=== PATIENT | male | born 1945 | race Caucasian/White ===

== ENCOUNTER → 2017-09-16 | Outpatient (CLI) | payer MEDICARE ==
[~2017-09-16] MED LIST: ALBUAER3 INH; ALPR.5 PO; ASPI1TAB57 PO; ASPI81TA23 PO; ATOR40TA16 PO; PERC5TAB12 PO; PLAV75TA29 PO; WALKER GLIDE WH1 MI1
[2017-09-16 14:09] LABS: HEMATOCRIT 44.2 % (39.0-51.0); MEAN CELL VOLUME 101.7 FL (80.0-100.0); MEAN CORPUSCULAR HEMOGLOBIN 35.3 PG (27.0-34.0); MEAN CORPUSCULAR HGB CONC 34.7 % (32.0-36.0); PLATELET COUNT 220 TH/MM3 (150-450); RED BLOOD COUNT 4.35 MIL/MM3 (4.50-5.90); RED CELL DISTRIBUTION WIDTH 13.8 % (11.6-17.2); REVIEW FLAG FINAL; WHITE BLOOD COUNT 6.3 TH/MM3 (4.0-11.0)
[2017-09-16 14:17] LABS: INTERNATIONAL NORMALIZED RATIO 0.9 RATIO; PROTHROMBIN TIME - PATIENT 10.4 SEC (9.8-11.6)
[2017-09-16 14:39] LABS: BICARBONATE 27.1 MEQ/L (21.0-32.0); POTASSIUM 4.5 MEQ/L (3.5-5.1)
--- NOTE | 2017-09-16 14:51 | RADRPT ---
EXAM DATE/TIME: 09/16/2017 14:12 [facility] COMPARISON: No previous studies available for comparison. INDICATIONS : Evaluate for pneumonia, pneumothorax and communicable diseases. Pre-op for angiogram. MEDICAL HISTORY : Smoker. SURGICAL HISTORY : None. ENCOUNTER: Initial ACUITY: 1 day PAIN SCORE: 0/10 LOCATION: Bilateral chest FINDINGS: PA and lateral views of the chest demonstrate a normal-sized cardiac silhouette. There is no effusion , consolidation, or pneumothorax. There is a nodular density anteriorly on the lateral projection kirsty suring approximately 14 mm projecting over the retrosternal airspace. There is no correlate on the fr ontal projection. The bones and soft tissues demonstrate no acute abnormality. There are mild degener ative changes of the thoracic spine. CONCLUSION: 1. No acute cardiopulmonary abnormality is identified. 2. However, there is a 14 mm nodular density only visualized on the lateral view that is either in th e left upper lobe or right middle lobe. If no prior chest x-rays are available for comparison, recomm end chest CT for further evaluation. Vel Stout MD on September 16, 2017 at 14:47 Board Certified Radiologist. This report was verified electronically.
--- NOTE | 2017-09-17 17:55 | EKG ---
Date Performed: 09/16/2017 Time Performed: 13:36:16 PTAGE: 72 years EKG: Sinus rhythm WITH SINUS ARRHYTHMIA POSSIBLE RIGHT VENTRICULAR CONDUCTION DELAY BORDERLINE ECG NO PREVIOUS TRACING DOCTOR: Marcel Moreland Interpretating Date/Time 09/17/2017 17:54:02
== END ==
LOC: CPRE 13:10
PROVIDERS: ATTEND Surgery
DX: Z01.812 Encounter for preprocedural laboratory examination (principal); Z01.810 Encounter for preprocedural cardiovascular examination; Z01.811 Encounter for preprocedural respiratory examination; I73.9 Peripheral vascular disease, unspecified
CPT/HCPCS: 36415; 71020; 80048; 85027; 85610; 93005

== ENCOUNTER 2017-09-24 05:50 | Inpatient (IN) | payer MEDICARE ==
[~2017-09-24] VITALS: Ht 170.2 cm; Wt 76.5 kg
[2017-09-24] VITALS (9 sets, daily range): BP systolic 111–130; BP diastolic 58–61; PULSE 66–86; RESP 16–17; TEMP 98.1–98.4; O2SAT 84–97
[~2017-09-24 05:50] MED LIST changes: -ASPI81TA23 PO; -ATOR40TA16 PO; -PERC5TAB12 PO; -PLAV75TA29 PO; -WALKER GLIDE WH1 MI1
[2017-09-24] MEDS ORDERED: METOPROLOL TARTRATE 25 MG TAB PO PRN (06:15)
[2017-09-24] MEDS ORDERED: POVIDONE IODINE 5% (ANTISEPSIS KIT) 4 APPLICATIONS EACH NARE PRN (06:15)
[2017-09-24] MEDS ORDERED: CHLORHEXIDINE GLUCONATE 2 % 1 PACK (2 CLOTHS) TOPICAL PRN (06:15)
[2017-09-24] MEDS ORDERED: SODIUM CHLORID 0.9% 500 ML IV PRN (06:15)
[2017-09-24] MEDS ORDERED: INSULIN HUMAN REGULAR 1,000 UNITS/10 ML VIAL SQ PRN (06:15)
[2017-09-24] MEDS: LACTATED RINGER'S 1000 ML IV PRN (06:20)
[2017-09-24] MEDS ORDERED: ASPI81TA23 PO (06:25)
[2017-09-24] MEDS ORDERED: PROTAMINE SULFATE 50 MG/5 ML VIAL ONE (07:15)
[2017-09-24] MEDS ORDERED: THROMBIN (TOPICAL) 20,000 UNIT SPRAY KIT ONE (07:16)
[2017-09-24] MEDS ORDERED: HEPARIN-NS/PF INJ 500 ML ONE (07:16)
[2017-09-24] MEDS ORDERED: HEPARIN SODIUM - IV 10,000 UNITS/10 ML VIAL ONE (07:16)
[2017-09-24] MEDS ORDERED: VANCOMYCIN HCL 1000 MG VIAL ONE (07:20)
[2017-09-24] MEDS ORDERED: RESP: ALBUTEROL 2.5 MG/IPRATROPIUM 0.5 MG NEB (PRN) ONE (07:56)
[2017-09-24] MEDS ORDERED: MIDAZOLAM HCL 2 MG/2 ML VIAL ONE (08:06)
[2017-09-24] MEDS ORDERED: FAMOTIDINE 20 MG/2 ML VIAL ONE (08:07)
--- NOTE | 2017-09-24 08:39 | HHI.HP ---
History of Present Illness Chief Complaint: L>R LE claudication History of Present Illness 72 yo male with L > R LE claudication. No rest pain and no tissue loss. Past/Family/Social History Past Medical History HTN DM CAD Past Surgical History cataracts R ankle surgery appy Social History + tobacco history Family History NC Home Medications Reported Medications Aspirin DR (Aspirin EC) 81 Mg Tabdr, 81 MG PO DAILY, TAB 0 Refills 09/24/17 Albuterol 8.5 GM Inh (Proair Hfa 8.5 GM Inh) 90 Mcg/Act Aer, 1 PUFF INH BID, #1 INHALER 0 Refills 108 mcg/actuation 09/17/17 Alprazolam (Xanax) 0.5 Mg Tab, 0.5 MG PO Q6H Y for ANXIETY, TAB 0 Refills 09/16/17 Discontinued Reported Medications Aspirin DR (Aspirin 81) 81 Mg Tabdr, 81 MG PO DAILY, TAB 0 Refills 09/16/17 Coded Allergies: Penicillins (Verified Allergy, Unknown, 09/24/17) Review of Systems Constitutional: DENIES: Fever, Chills Respiratory: COMPLAINS OF: Shortness of breath Cardiovascular: COMPLAINS OF: Claudication, DENIES: Chest pain Physical Exam Vitals/I&O Date Time Temp Pulse Resp B/P (MAP) Pulse Ox O2 Delivery O2 Flow Rate FiO2 09/24/17 06:22 98.0 82 18 169/81 (110) 97 Neuro: awake, alert, VALDOVINOS HEENT: Anicteric sclera Neck: no JVD; trachea midline Heart: reg rate, no M Lungs: clear Bilaterally Abdomen: NT Vascular: No palp pedal pulses no palp R femoral pulse Caprini VTE Risk Assessment Caprini VTE Risk Assessment: Mod/High Risk (score >= 2) Caprini Risk Assessment Model Point Value = 1 Point Value = 2 Point Value = 3 Point Value = 5 Age 41-60 Minor surgery BMI > 25 kg/m2 Swollen legs Varicose veins or History of unexplained or recurrent spontaneous Oral contraceptives or hormone replacement Sepsis (< 1 month) Serious lung disease, including pneumonia (< 1 month) Abnormal pulmonary function Acute myocardial infarction Congestive heart failure (< 1 month) History of inflammatory bowel disease Medical patient at bed rest Age 61-74 Arthroscopic surgery Major open surgery (> 45 min) Laparoscopic surgery (> 45 min) Malignancy Confined to bed (> 72 hours) Immobilizing plaster cast Central venous access Age >= 75 History of VTE Family history of VTE Factor V Leiden Prothrombin [id number] Lupus anticoagulant Anticardiolipin antibodies Elevated serum homocysteine Heparin-induced thrombocytopenia Other congenital or acquired thrombophilia Stroke (< 1 month) Elective arthroplasty Hip, pelvis, or leg fracture Acute spinal cord injury (< 1 month) Prophylaxis Regimen Total Risk Factor Score Risk Level Prophylaxis Regimen 0-1 Low Early ambulation 2 Moderate Order ONE of the following: *Sequential Compression Device (SCD) *Heparin 5000 units SQ BID 3-4 Higher Order ONE of the following medications: *Heparin 5000 units SQ TID *Enoxaparin/Lovenox 40 mg SQ daily (WT < 150 kg, CrCl > 30 mL/min) *Enoxaparin/Lovenox 30 mg SQ daily (WT < 150 kg, CrCl > 10-29 mL/min) *Enoxaparin/Lovenox 30 mg SQ BID (WT < 150 kg, CrCl > 30 mL/min) AND/OR *Sequential Compression Device (SCD) 5 or more Highest Order ONE of the following medications: *Heparin 5000 units SQ TID (Preferred with Epidurals) *Enoxaparin/Lovenox 40 mg SQ daily (WT < 150 kg, CrCl > 30 mL/min) *Enoxaparin/Lovenox 30 mg SQ daily (WT < 150 kg, CrCl > 10-29 mL/min) *Enoxaparin/Lovenox 30 mg SQ BID (WT < 150 kg, CrCl > 30 mL/min) AND *Sequential Compression Device (SCD) Assessment and Plan Plan R groin reconstruction and L LE angiogram consents signed To OR Discharge Planning [phone] Frank Rodriguez MD Sep 24, 2017 08:39
[2017-09-24] MEDS ORDERED: MAGNESIUM HYDROXIDE SUSP 30 ML CUP PO PRN (09:15)
[2017-09-24] MEDS ORDERED: LACTULOSE SYRUP 20 GM/30 ML CUP PO PRN (09:15)
[2017-09-24] MEDS ORDERED: BISACODYL 10 MG SUPP RECTAL PRN (09:15)
[2017-09-24] MEDS ORDERED: DEXTROSE 50% IN WATER 50 ML VIAL(D50) IV PUSH PRN (09:15)
[2017-09-24] MEDS ORDERED: MORPHINE SULFATE 4 MG/ML INJ IV PUSH PRN (09:15)
[2017-09-24] MEDS ORDERED: SENNOSIDES 8.6 MG TAB PO PRN (09:15)
[2017-09-24] MEDS ORDERED: GLUCAGON 1 MG/ML VIAL OTHER PRN (09:15)
[2017-09-24] MEDS ORDERED: DEXMEDETOMIDINE HCL 200 MCG/2 ML VIAL ONE (10:38)
[2017-09-24] MEDS ORDERED: ACETAMINOPHEN 1000 MG/100 ML 100 ML IV ONE (10:39)
[2017-09-24] MEDS ORDERED: D5-1/2 NS + KCL 20 MEQ INJ 1,000 ML IV SCH (11:00)
[2017-09-24] MEDS: BUPIVACAINE HCL PF 0.5% 30 ML VIAL ONE (11:19)
--- NOTE | 2017-09-24 11:47 | HHI.PR ---
Immediate Post Op Note Procedure Date: Sep 24, 2017 Pre Op Diagnosis: PAD, B LE extremities Post Op Diagnosis: PAD, B LE extremities Surgeon: Frank Rodriguez Form Setter Steel Pan Forms(s): none Procedure: 1. R iliofemoral bypass 2. R profunda endarterectomy 3. R CANINE SERVICE INSTRUCTOR TRAINER-SFA bypass 4. R EIA stent 5. Aortogram Findings: extensive groin disease and inflow disease Additional Information: good Doppler signals R PT Complications: none Specimen(s) removed: none for pathology Estimated blood loss: 150mL Anesthesia: General Drains: None Fluids: 2100mL IVF Urinary Output (mLs): 355 Patient to: PACU Patient Condition: Good Implant/Devices: SEE IMPLANT LOG (if applicable) Date/Time of Procedure: SEE SURGICAL CARE RECORD Frank Rodriguez MD Sep 24, 2017 11:47
[2017-09-24] MEDS ORDERED: NORMOSOL R INJ 2,000 ML IV ONE (12:00)
[2017-09-24] MEDS ORDERED: LIDOCAINE HCL 1% PF 5 ML SYRINGE OTHER ONE (12:00)
[2017-09-24] MEDS ORDERED: PHENYLEPH/NS 1000 MCG/10 ML SYR IV ONE (12:00)
[2017-09-24] MEDS ORDERED: GLYCOPYRROLATE 1 MG/5 ML SYRINGE IV PUSH ONE (12:00)
[2017-09-24] MEDS ORDERED: ePHEDrine/NS 25 MG/5 ML SYR IV ONE (12:00)
[2017-09-24] MEDS ORDERED: ROCURONIUM INJ 50 MG/5 ML SYRINGE IV PUSH ONE (12:00)
[2017-09-24] MEDS ORDERED: DEXAMETHASONE SOD PHOS 4 MG/ML VIAL IV ONE (12:00)
[2017-09-24] MEDS ORDERED: PROPOFOL 200 MG/20 ML AMP IV ONE (12:00)
[2017-09-24] MEDS ORDERED: NEOSTIGMINE 3 MG/3 ML SYR IV ONE (12:00)
[2017-09-24] MEDS ORDERED: SODIUM CHLOR 0.9% 250 ML INJ 250 ML IV ONE (12:00)
[2017-09-24] MEDS ORDERED: hydrALAZINE HCL 20 MG/ML VIAL IV ONE (12:00)
[2017-09-24] MEDS ORDERED: ONDANSETRON HCL 4 MG/2 ML VIAL IV PUSH ONE (12:00)
[2017-09-24] MEDS ORDERED: MORPHINE SULFATE 4 MG/ML INJ IV ONE (12:00)
[2017-09-24] MEDS ORDERED: SODIUM CHLORID 0.9% 500 ML INJ 500 ML IV ONE (12:00)
[2017-09-24] MEDS ORDERED: DO NOT ADM ANY ANTICOAGULANT DRUGS PRN (12:11)
[2017-09-24] MEDS ORDERED: *morphine SULFATE 8 MG/ML PERIprocedure ONLY ONE (12:28)
[2017-09-24] MEDS ORDERED: IOHEXOL IV ONE (13:59)
[2017-09-24] MEDS ORDERED: ALBUTEROL SULFATE 90 MCG/ACT HFA 8 GM INHALER INH PRN (14:00)
[2017-09-24] MEDS: INSULIN ASPART SUPPLEMENTAL SCALE SQ SCH ×2 (17:00→20:58)
[2017-09-24] MEDS: FAMOTIDINE 20 MG TAB PO SCH (20:52)
[2017-09-24] MEDS: DOCUSATE SODIUM 50 MG/SENNA 8.6 MG TAB PO SCH (20:52)
[2017-09-24] MEDS: HYDROmorphone HCL 2 MG TAB PO PRN (20:53)
[2017-09-24] MEDS: ATORVASTATIN 40 MG TAB PO SCH (20:53)
--- NOTE | 2017-09-24 22:54 | MP ---
cc: MINE RODRIGUEZ DATE OF SURGERY 09/24/17 PREOPERATIVE DIAGNOSIS Bilateral lower extremity claudication, peripheral arterial occlusive disease. POSTOPERATIVE DIAGNOSIS Bilateral lower extremity claudication, peripheral arterial occlusive disease. PROCEDURE 1. Right iliofemoral bypass with 8 mm Dacron. 2. Right profunda endarterectomy. 3. Right common femoral to superficial femoral artery bypass with 8 mm Dacron. 4. Aortogram. 5. Right external iliac artery stent with 8 x 80 Zilver. MEDICATIONS Mine Rodriguez MD. ANESTHESIA General. INDICATIONS Mr. Gonzalez is a 72-year-old gentleman who has bilateral lower extremity claudication. Preoperative CT scan suggested he had significant right groin disease and he is taken to the operating room for combined endovascular and revascularization. Intraoperatively it was found that he had significant left inflow disease as well and so only the right side was repaired today. DESCRIPTION OF PROCEDURE Informed consent was obtained from the patient. He was taken to the operating room and placed supine on the operating table. An appropriate time-out was taken to ensure the patient identity, operative site and planned procedure. The administration of 1 gram of vancomycin was initiated prior to skin incision, will be discontinued after single preoperative dose. Vancomycin was chosen because of the patient's penicillin allergy. Everyone in the room agreed to a time-out and we proceeded. He was prepped from his nipples to his toes. A vertical incision made in the patient's right groin, carried down to subcutaneous tissue with electrocautery. The external iliac artery was dissected free and encircled with a vessel loop. The circumflex vessels were encircled with 2-0 silk for vascular control. The common femoral artery, proximal profunda and SFA was dissected free. The SFA was dissected about 5 or 6 cm down from its origin to a point that it was less calcified. At this point the patient systemically heparinized and throughout the remainder of the case the ACT was kept greater than 250. Vascular control of the two main profunda branches as well as the external iliac artery were obtained with profunda clamps. The SFA was controlled with the profunda clamp as well. The SFA was transected and the common femoral artery was transected at the level of the two main profunda branches. There was severe plaque in the profunda and so this was successfully endarterectomized with a [place] endarterectomy knife. A reasonable endpoint was obtained. The common femoral artery was resected and the external artery iliac artery was spatulated, 8 mm Dacron was sewn end-to-end to the external iliac artery with running 5-0 Prolene suture, at the completion it was flushed and the clamp was released and noted to be hemostatic with a couple of repair sutures. A Derick soft jaw clamp was placed on the Dacron and the Dacron was spatulated with a generous osorio to the orifice of the endarterectomized profunda femoris arteries. This was anastomosed with a 5-0 Prolene suture. Profunda clamps then placed on the graft after confirming hemostasis and a longitudinal graftotomy was made with an 11 blade, extended with Calhoun scissors. 8 mm Dacron was sewn graft to graft with running 5-0 Prolene suture. Then all the clamps were released except for the clamp on the second graft which was noted to have a nice pulse in it. The second graft which was a jump graft on the SFA was cut to an appropriate length, spatulated. The SFA was also spatulated, it was sewn end-to-end with a running 5-0 Prolene suture. A 21 gauge micropuncture needle was used to access the jump graft. This exchanged using Seldinger technique for micropuncture sheath which a 0.035 Glidewire was introduced, micropuncture was changed for a 5-Fijian sheath and a VCF catheter was placed over the wire in through the sheath and the aortogram was obtained. The aortogram showed patent aorta but significant calcific disease in both the common iliac arteries which is not felt to be hemodynamically significant but both external iliac arteries which was hemodynamically significant. The left external iliac artery and common femoral artery were extremely diseased and based on this decision was made to fix the right side only today. A 0.035 Storq wire was introduced through the VCF catheter and the VCF catheter and 5-Fijian sheath were removed and a 6-Fijian sheath introduced and an 8 x 80 Zilver was placed in the proximal external iliac artery and postdilated with a 7-mm balloon. The completion angiogram showed excellent result under recoil extravasation. The wire, catheter and sheath were removed. The graftotomy was closed with 5-0 Prolene suture. There was a nice Doppler signal in the foot and the wound was irrigated, made hemostatic and closed with 2-0 Polysorb, 3-0 Polysorb and 4-0 Monocryl. The sponge, needle counts were correct at the end of the case. I was present, scrubbed and performed the entire procedure. MD SIMIN Burroughs/ASHU /5:41 PM /10:31 PM KAYLAN
[2017-09-24] MEDS: ALPRAZolam 0.5 MG TAB PO PRN (23:08)
[2017-09-25] VITALS (26 sets, daily range): BP systolic 107–161; BP diastolic 56–72; PULSE 62–112; RESP 16–20; TEMP 98.2–99.1; O2SAT 76–97
[2017-09-25 05:50] LABS: HEMATOCRIT 38.7 % (39.0-51.0); MEAN CORPUSCULAR HEMOGLOBIN 34.5 PG (27.0-34.0); MEAN CORPUSCULAR HGB CONC 33.8 % (32.0-36.0); PLATELET COUNT 152 TH/MM3 (150-450); RED BLOOD COUNT 3.79 MIL/MM3 (4.50-5.90); RED CELL DISTRIBUTION WIDTH 13.6 % (11.6-17.2); REVIEW FLAG FINAL
[2017-09-25 06:13] LABS: ANION GAP 6 MEQ/L (5-15); BICARBONATE 27.2 MEQ/L (21.0-32.0); BLOOD UREA NITROGEN 10 MG/DL (7-18); CHLORIDE 105 MEQ/L (98-107); GLOMERULAR FILTRATION RATE 92 ML/MIN (>89); POTASSIUM 3.7 MEQ/L (3.5-5.1); SODIUM (NA) 138 MEQ/L (136-145)
--- NOTE | 2017-09-25 06:42 | PD.VS.PN ---
Subjective POD #: 1 Procedure(s): R groin reconstruction and iliac stent Subjective/Hospital Course didn't sleep well but because of noises and not pain R foot already feels better Objective Vitals/I&O Date Time Temp Pulse Resp B/P (MAP) Pulse Ox O2 Delivery O2 Flow Rate FiO2 09/25/17 06:10 80 09/25/17 05:14 88 09/25/17 03:10 73 09/25/17 03:06 98.2 76 17 107/56 (73) 76 09/25/17 02:02 62 09/25/17 01:11 75 09/24/17 23:00 66 09/24/17 22:55 98.3 85 16 118/58 (78) 94 09/24/17 22:54 17 09/24/17 21:00 76 09/24/17 19:00 98.1 77 17 111/61 (78) 94 09/24/17 19:00 70 09/24/17 18:00 80 09/24/17 17:00 80 09/24/17 16:00 84 09/24/17 15:30 16 09/24/17 15:00 86 09/24/17 14:00 98.4 84 16 130/60 (83) 97 09/24/17 13:30 97.6 78 12 121/60 (80) 96 Nasal Cannula 3 09/24/17 13:15 81 15 118/60 (79) 96 Nasal Cannula 3 09/24/17 13:00 83 15 103/55 (71) 93 Nasal Cannula 3 09/24/17 12:45 84 15 99/55 (70) 93 Nasal Cannula 3 09/24/17 12:30 85 17 118/58 (78) 93 Nasal Cannula 3 09/24/17 12:15 84 24 128/55 (79) 95 Nasal Cannula 3 09/24/17 12:12 98.2 84 15 131/62 (85) 94 Nasal Cannula 3 09/25/17 09/25/17 09/25/17 07:00 15:00 23:00 Intake Total 654 ml Output Total 950 ml Balance -296 ml Exam: R groin soft, not swollen; Provena in place palpable R PT Laboratory Laboratory Tests Test 09/25/17 05:20 White Blood Count 10.0 Red Blood Count 3.79 Hemoglobin 13.1 Hematocrit 38.7 Mean Corpuscular Volume 102.0 Mean Corpuscular Hemoglobin 34.5 Mean Corpuscular Hemoglobin Concent 33.8 Red Cell Distribution Width 13.6 Platelet Count 152 Mean Platelet Volume 7.4 Blood Urea Nitrogen 10 Creatinine 0.82 Random Glucose 118 Calcium Level 7.8 Sodium Level 138 Potassium Level 3.7 Chloride Level 105 Carbon Dioxide Level 27.2 Anion Gap 6 Estimat Glomerular Filtration Rate 92 Assessment and Plan Plan POD#1 s/p R groin reconstruction and iliac stent; palpable pedal pulse 1. HL IVF, normalize including ASA/plavix 2. OOB and ambulate ad lyle 3. Consulted thoracic surgery re: incidental lung mass Discharge Planning tomorrow (POD#2) Once recovers from R groin, will schedule LEFT leg Frank Rodriguez MD Sep 25, 2017 06:42
[2017-09-25] MEDS: INSULIN ASPART SUPPLEMENTAL SCALE SQ SCH ×4 (08:00→21:00)
[2017-09-25] MEDS ORDERED: INFLUENZA VIRUS VACCINE (QUADRIVALENT) 0.5 ML SYR IM ONE (09:00)
[2017-09-25] MEDS: CLOPIDOGREL 75 MG TAB PO SCH (09:25)
[2017-09-25] MEDS: DOCUSATE SODIUM 50 MG/SENNA 8.6 MG TAB PO SCH ×2 (09:25→20:05)
[2017-09-25] MEDS: ASPIRIN 81 MG CHEW TAB PO SCH (09:25)
[2017-09-25] MEDS: FAMOTIDINE 20 MG TAB PO SCH ×2 (09:26→20:05)
[2017-09-25] MEDS: ENOXAPARIN SODIUM 30 MG/0.3 ML SYRINGE SQ SCH (11:13)
[2017-09-25 15:47] LABS: HEMOGLOBIN A1b 1.6 %; HEMOGLOBIN Ao 84.4 %; HEMOGLOBIN LA1C 2.4 %; HEMOGLOBIN P3 3.9 %
[2017-09-25] MEDS ORDERED: FLUMAZENIL 0.5 MG/5 ML VIAL IV PUSH PRN (17:45)
[2017-09-25] MEDS ORDERED: LORazepam 2 MG/ML VIAL IV PUSH PRN ×4 (17:45)
[2017-09-25] MEDS ORDERED: LORazepam 1 MG TAB PO PRN (17:45)
[2017-09-25] MEDS ORDERED: LORazepam 2 MG TAB PO PRN (17:45)
[2017-09-25] MEDS ORDERED: LACTATED RINGER'S 1000 ML INJ 1,000 ML IV SCH (18:00)
[2017-09-25] MEDS ORDERED: SODIUM CHLOR 0.9% 1000 ML INJ 1,000 ML IV ONE (19:30)
[2017-09-25] MEDS: ATORVASTATIN 40 MG TAB PO SCH (20:05)
[2017-09-25 20:59] LABS: BICARBONATE 26.9 MEQ/L (21.0-32.0); POTASSIUM 3.6 MEQ/L (3.5-5.1)
--- NOTE | 2017-09-25 23:05 | RADRPT ---
EXAM DATE/TIME: 09/25/2017 21:59 [facility] COMPARISON: CHEST PA & LAT, September 16, 2017, 14:12. INDICATIONS : Evaluate for lung nodule. Abnormal Chest X-ray. RADIATION DOSE: 9.38 CTDIvol (mGy) MEDICAL HISTORY : Cardiovascular disease. Hypertension. Chronic obstructive pulmonary disease. SURGICAL HISTORY : Appendectomy. ENCOUNTER: Initial ACUITY: 1 day PAIN SCALE: 0/10 LOCATION: chest TECHNIQUE: Volumetric scanning of the chest was performed. Using automated exposure control and adjustment of t he mA and/or kV according to patient size, radiation dose was kept as low as reasonably achievable to obtain optimal diagnostic quality images. DICOM format image data is available electronically for r eview and comparison. Follow-up recommendations for detected pulmonary nodules are based at a minimum on nodule size and pa tient risk factors according to Fleischner Society Guidelines. FINDINGS: LUNGS: Biapical emphysematous changes. There is a mild perifissural probable atelectatic changes or scarring in the right upper lobe no confluent infiltrate or suspicious mass lesion. PLEURAE: Focal areas of pleural calcification in the left upper hemithorax may represent prior asbestos exposu re. MEDIASTINUM: The heart and great vessels demonstrate no acute abnormality. There is no mediastinal or hilar lymph adenopathy. Atherosclerotic calcification of the coronary arteries AXILLAE: Within normal limits. No lymphadenopathy. MUSCULOSKELETAL: Within normal limits for patient age. MISCELLANEOUS: The visualized upper abdominal organs demonstrate no acute abnormality. There are benign-appearing pr obable cyst in the left and right hepatic lobe, the largest on the left measuring 2.5 cm in diameter. Density levels in the gallbladder lumen may represent sludge or small stones. CONCLUSION: 1. Biapical emphysematous changes with probable perifissural atelectasis or scarring in the right upp er lobe. 2. No confluent infiltrate or suspicious mass lesion. 3. Pleural-based calcifications in the left hemithorax may be indicative of prior asbestos exposure. 4. Gallbladder sludge versus small stones. 5. Benign-appearing hepatic cysts Dio Wyatt MD on September 25, 2017 at 22:56 Board Certified Radiologist. This report was verified electronically.
[2017-09-26] VITALS (26 sets, daily range): BP systolic 124–162; BP diastolic 58–72; PULSE 80–103; RESP 16–18; TEMP 98–100.5; O2SAT 93–97
[2017-09-26] MEDS: ALPRAZolam 0.5 MG TAB PO PRN (00:27)
[2017-09-26 04:48] LABS: BICARBONATE 23.6 MEQ/L (21.0-32.0); POTASSIUM 3.6 MEQ/L (3.5-5.1)
[2017-09-26] MEDS: INSULIN ASPART SUPPLEMENTAL SCALE SQ SCH ×3 (07:35→11:44)
--- NOTE | 2017-09-26 08:00 | MB ---
cc: MARCIO ADAMS MD DATE OF CONSULTATION 09/25/2017 DATE OF 1945, 72-year-old male HISTORY OF THE PRESENT ILLNESS A 72-year-old patient of in [place], Dr. Frank Rodriguez who has a history of peripheral arterial disease with claudication underwent a right iliofemoral bypass with 8-mm , right profunda endarterectomy, right common femoral to superficial femoral artery bypass, right external iliac artery stent on 09/24/2017. Incidentally a preop chest x-ray showed a 14 mm nodular density on the lateral view. The patient states that he has a had a history of having a small nodule on the right lung that was followed by [facility] about 3 years ago and he last had a CT scan of the chest at [facility] in [place] and we were consulted in regards to workup regarding this nodular density. PAST MEDICAL HISTORY The patient's past medical history includes: 1. Peripheral arterial disease. 2. Chronic obstructive pulmonary disease. 3. Claudication of the lower extremities . PAST SURGICAL HISTORY As above includin. Right cataract surgery. 2. Right ankle surgery. 3. Appendectomy. 4. He is also legally blind in the left eye from . ALLERGIES THE PATIENT HAS ALLERGY TO PENICILLIN. MEDICATIONS Home medications include: 1. Aspirin. 2. Ventolin inhaler. 3. Xanax. FAMILY HISTORY Mother at 93 from old age. Father at 86 after resulting after a fall. SOCIAL HISTORY The patient recently remarried. Two children. Has been smoking for 50 years one pack per day. Drinks approximately six beers per day. 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 He worked there for about 5-6 years. Has two dogs at home. No recent travel. REVIEW OF SYSTEMS GENERAL: No night sweats, fever, heat and cold intolerance. SKIN: No psoriasis, itching or hives. HEENT: No blurred vision, hearing loss. RESPIRATORY: Occasional shortness of breath. CARDIOVASCULAR: No chest pain. No paroxysmal nocturnal dyspnea. He has chronic lower extremity pain and claudication when walking and cramping. GASTROINTESTINAL: No known diarrhea, vomiting. GENITOURINARY: No burning, frequency, urgency. CENTRAL NERVOUS SYSTEM: No history of TIA, CVA, seizure disorder. ENDOCRINE: No diabetes or hypothyroidism. PHYSICAL EXAMINATION VITAL SIGNS: On exam blood pressure 110/60, heart rate of 84, afebrile. GENERAL: Patient is awake, alert in no acute distress. HEENT: Head is normocephalic, atraumatic. Pupils equal and reactive. Oral mucosa pink, moist. NECK: Supple. No JVD. CARDIOVASCULAR: Heart sounds S1-S2 regular rate and rhythm. No audible rubs, murmurs, gallops. LUNGS: Diminished in the bases, otherwise clear to auscultation. No wheezes, rales or rhonchi. EXTREMITIES: Reveal palpable right pedal pulse. The right groin has a Prevena dressing in place. Left leg, left foot is warm with palpable pulse. IMPRESSION This is a patient status post peripheral arterial surgery as above with incidental finding of a 14 mm nodular density in the lung. He has had a history apparently of a nodule in the past. CT chest is pending. We will also try to obtain the prior records from [facility] in [place]. In the meantime the patient recommend again lifestyle modification with aspirin, statin, probable Plavix and further workup is pending as per the CT chest. In the meantime, recommend smoking cessation and pulmonary function testings which are pending. Dictated by VINCENZO Meehan Marcio BUTLER /2:21 PM /7:52 AM
[2017-09-26] MEDS: CLOPIDOGREL 75 MG TAB PO SCH (08:32)
[2017-09-26] MEDS: DOCUSATE SODIUM 50 MG/SENNA 8.6 MG TAB PO SCH ×2 (08:32→20:53)
[2017-09-26] MEDS: ASPIRIN 81 MG CHEW TAB PO SCH (08:33)
[2017-09-26] MEDS: FAMOTIDINE 20 MG TAB PO SCH ×2 (08:33→20:53)
--- NOTE | 2017-09-26 09:37 | PD.VS.PN ---
Subjective POD #: 2 Procedure(s): R groin reconstruction and iliac stent Subjective/Hospital Course Pt alert and oriented this am Pt reported improved RLE pain since surgery Pt voiding w/o difficulty Right groin w/ Provena wound vac in place Objective Vitals/I&O Date Time Temp Pulse Resp B/P (MAP) Pulse Ox O2 Delivery O2 Flow Rate FiO2 09/26/17 09:00 88 09/26/17 08:00 100.1 88 18 162/72 (102) 93 09/26/17 08:00 86 09/26/17 07:00 81 09/26/17 06:00 80 09/26/17 05:00 84 09/26/17 04:00 88 09/26/17 03:00 91 09/26/17 03:00 99.0 93 16 159/67 (97) 93 09/26/17 02:00 90 09/26/17 01:00 84 09/26/17 00:00 100 09/25/17 23:00 99.1 93 16 161/71 (101) 95 09/25/17 23:00 91 09/25/17 22:00 90 09/25/17 21:00 88 09/25/17 20:00 92 09/25/17 19:15 99.0 95 20 158/72 (100) 94 09/25/17 19:00 90 09/25/17 18:00 104 09/25/17 17:00 104 09/25/17 16:00 112 09/25/17 15:00 99 09/25/17 15:00 98.3 106 20 124/59 (80) 97 09/25/17 14:00 80 09/25/17 13:00 72 09/25/17 12:00 92 09/25/17 11:30 84 16 107/58 (74) 95 09/25/17 11:30 16 09/25/17 11:00 80 09/25/17 10:30 16 09/25/17 10:00 88 09/26/17 09/26/17 09/26/17 07:00 15:00 23:00 Intake Total 1162 ml Output Total 825 ml Balance 337 ml Exam: GENERAL: A&O, GCS 15 SKIN: Warm and dry/ Provena wound vac to right groin w/o swelling or hematoma/ LE warm with motor intact MUSCULOSKELETAL: No cyanosis, or edema. Biphasic R DP/PT Laboratory Laboratory Tests Test 09/25/17 18:55 09/26/17 04:15 Blood Urea Nitrogen 14 10 Creatinine 0.91 0.72 Random Glucose 93 93 Calcium Level 7.8 7.9 Sodium Level 132 138 Potassium Level 3.6 3.6 Chloride Level 99 105 Carbon Dioxide Level 26.9 23.6 Anion Gap 6 9 Estimat Glomerular Filtration Rate 82 107 Assessment and Plan Assessment: (1) PAD (peripheral artery disease) Plan POD#2 s/p R groin reconstruction and iliac stent; palpable pedal pulse Pt doing well Pt reported improved RLE pain and discomfort since surgical intervention Pt denied rest pain /claudication Reviewed lab results w/ pt Plan Continue OOB and ambulate with PT D/c MIVF I/S q4h Pain control D/C planning -pending CT/PFT results for incidental lung mass finding (thoracic surgery input appreciated) Courtney LOYA [facility] [phone] Discharge Planning 1-2 days Courtney Donald Sep 26, 2017 09:37
[2017-09-26] MEDS: ENOXAPARIN SODIUM 30 MG/0.3 ML SYRINGE SQ SCH (11:01)
--- NOTE | 2017-09-26 17:18 | PD.CAR.PN ---
CVT Progress Note Subjective/Hospital Course: Discussed findings with patient. CT chest does not show a definitive mass in the right lung, although, there is some ground-glass opacity versus atelectasis in the superior segment of the right lower lobe. Would recommend outpatient PET scan in case this represents a slo-growing bronchoalveolar carcinoma. His PFTs would preclude any formal anatomic pulmonary resection. Thanks for allowing me to participate in the care of this very pleasant gentleman. Objective: Vital Signs Date Time Temp Pulse Resp B/P (MAP) Pulse Ox O2 Delivery O2 Flow Rate FiO2 09/26/17 17:00 85 09/26/17 16:39 18 09/26/17 16:00 84 09/26/17 15:55 99.9 100 18 150/65 (93) 97 09/26/17 15:00 90 09/26/17 14:00 84 09/26/17 13:00 85 09/26/17 12:00 98 09/26/17 11:16 99.0 100 18 134/62 (86) 93 09/26/17 11:00 103 09/26/17 10:00 84 09/26/17 09:00 88 09/26/17 08:00 100.1 88 18 162/72 (102) 93 09/26/17 08:00 86 09/26/17 07:00 81 09/26/17 06:00 80 09/26/17 05:00 84 09/26/17 04:00 88 09/26/17 03:00 91 09/26/17 03:00 99.0 93 16 159/67 (97) 93 09/26/17 02:00 90 09/26/17 01:00 84 09/26/17 00:00 100 09/25/17 23:00 99.1 93 16 161/71 (101) 95 09/25/17 23:00 91 09/25/17 22:00 90 09/25/17 21:00 88 09/25/17 20:00 92 09/25/17 19:15 99.0 95 20 158/72 (100) 94 09/25/17 19:00 90 09/25/17 18:00 104 Result Diagram: 09/25/17 0520 09/26/17 0415 Agustin Rutherford MD Sep 26, 2017 17:18
[2017-09-26] MEDS: ATORVASTATIN 40 MG TAB PO SCH (20:53)
[2017-09-26] MEDS: HYDROmorphone HCL 2 MG TAB PO PRN (23:47)
[2017-09-27] VITALS (15 sets, daily range): BP systolic 119–130; BP diastolic 58–61; PULSE 64–85; RESP 18; TEMP 99–99.8; O2SAT 95
[2017-09-27] MEDS: FAMOTIDINE 20 MG TAB PO SCH (09:00)
[2017-09-27] MEDS: DOCUSATE SODIUM 50 MG/SENNA 8.6 MG TAB PO SCH (09:00)
[2017-09-27] MEDS ORDERED: ENOXAPARIN SODIUM 40 MG/0.4 ML SYRINGE SQ SCH (09:00)
[2017-09-27] MEDS: ASPIRIN 81 MG CHEW TAB PO SCH (09:00)
[2017-09-27] MEDS: CLOPIDOGREL 75 MG TAB PO SCH (09:01)
--- NOTE | 2017-09-27 09:45 | PD.VS.PN ---
Subjective POD #: 3 Procedure(s): R groin reconstruction and iliac stent Subjective/Hospital Course Pt alert and oriented this am Pain controlled Pt w/o complaints Pt reported improved RLE pain since surgery Removed Provena wound vac from Right groin R groin incision intact well approximated Objective Vitals/I&O Date Time Temp Pulse Resp B/P (MAP) Pulse Ox O2 Delivery O2 Flow Rate FiO2 09/27/17 08:00 77 09/27/17 07:53 99.8 76 18 119/61 (80) 95 09/27/17 07:00 67 09/27/17 06:00 85 09/27/17 05:00 80 09/27/17 04:00 66 09/27/17 03:00 72 09/27/17 03:00 99.8 76 18 130/60 (83) 95 09/27/17 02:00 72 09/27/17 01:00 80 09/27/17 00:00 78 09/26/17 23:00 100.5 83 18 124/60 (81) 96 09/26/17 23:00 91 09/26/17 22:00 88 09/26/17 21:00 88 09/26/17 20:00 84 09/26/17 20:00 98.0 86 18 124/58 (80) 95 09/26/17 19:00 91 09/26/17 18:00 84 09/26/17 17:00 85 09/26/17 16:39 18 09/26/17 16:00 84 09/26/17 15:55 99.9 100 18 150/65 (93) 97 09/26/17 15:00 90 09/26/17 14:00 84 09/26/17 13:00 85 09/26/17 12:00 98 09/26/17 11:16 99.0 100 18 134/62 (86) 93 09/26/17 11:00 103 09/26/17 10:00 84 09/27/17 09/27/17 09/27/17 07:00 15:00 23:00 Intake Total 240 ml Output Total 200 ml Balance 40 ml Exam: GENERAL: A&O, GCS 15 SKIN: Warm and dry/ right groin w/o swelling or hematoma/LE warm with motor intact/Right groin incision intact w/o D/S/O mild erythema at the incision line MUSCULOSKELETAL: No cyanosis, or edema. Biphasic R DP/PT Assessment and Plan Assessment: (1) PAD (peripheral artery disease) Plan POD#3s/p R groin reconstruction and iliac stent; palpable pedal pulse Pt doing well Pt reported improved RLE pain and discomfort since surgical intervention Pt denied rest pain /claudication Plan Walker order D/C today Arranged OP f/u Courtney LOYA [facility] [phone] Discharge Planning today Courtney Donald Sep 27, 2017 09:45
[2017-09-27] MEDS ORDERED: PERC5TAB12 PO (09:49)
[2017-09-27] MEDS ORDERED: ATOR40TA16 PO (09:49)
[2017-09-27] MEDS ORDERED: PLAV75TA29 PO (09:49)
[2017-09-27] MEDS ORDERED: WALKER GLIDE WH1 MI1 (09:54)
--- NOTE | 2017-09-27 09:54 | PD.VS.DC ---
Discharge Summary Admission Date: Sep 24, 2017 at 05:50 Discharge Date: Sep 27, 2017 Admission Diagnosis: (1) PAD (peripheral artery disease) Discharge Diagnosis: (1) PAD (peripheral artery disease) ICD Codes: I73.9 - Peripheral vascular disease, unspecified Brief History from admission 72 yo male with L > R LE claudication. No rest pain and no tissue loss. Procedure(s): R groin reconstruction and iliac stent Significant Findings GENERAL: A&O, GCS 15 SKIN: Warm and dry/ right groin incision intact w/o swelling or hematoma/LE warm with motor intact MUSCULOSKELETAL: No cyanosis, or edema. Biphasic R DP/PT Laboratory Tests Test 09/25/17 05:20 09/25/17 18:55 09/26/17 04:15 Red Blood Count 3.79 MIL/MM3 (4.50-5.90) Hematocrit 38.7 % (39.0-51.0) Mean Corpuscular Volume 102.0 FL (80.0-100.0) Mean Corpuscular Hemoglobin 34.5 PG (27.0-34.0) Random Glucose 118 MG/DL (74-106) Calcium Level 7.8 MG/DL (8.5-10.1) 7.8 MG/DL (8.5-10.1) 7.9 MG/DL (8.5-10.1) Sodium Level 132 MEQ/L (136-145) Estimat Glomerular Filtration Rate 82 ML/MIN (>89) Hospital Course: 72 yo male with L > R LE claudication. No rest pain and no tissue loss. Pt s/p R groin reconstruction w/ iliac stent Pt w/o complications ready for D/C Arranged Post op F/U Allergies Coded Allergies Type Severity Reaction Last Updated Verified Penicillins Allergy Unknown 09/24/17 Yes Recent Impressions Chest CT 09/25/17 0000 Signed Impressions: Service Date/Time: Monday, September 25, 2017 21:59 - CONCLUSION: 1. Biapical emphysematous changes with probable perifissural atelectasis or scarring in the right upper lobe. 2. No confluent infiltrate or suspicious mass lesion. 3. Pleural-based calcifications in the left hemithorax may be indicative of prior asbestos exposure. 4. Gallbladder sludge versus small stones. 5. Benign-appearing hepatic cysts Dio Wyatt MD 09/25/17 09/25/17 09/26/17 09/26/17 09/27/17 09/27/17 06:00 18:00 06:00 18:00 06:00 18:00 Intake Total 654 ml 720 ml 2162 ml 1143 ml 240 ml Output Total 950 ml 120 ml 825 ml 1100 ml 200 ml Balance -296 ml 600 ml 1337 ml 43 ml 40 ml Intake Oral 240 ml 720 ml 480 ml 975 ml 240 ml IV Total 414 ml 1682 ml 168 ml Output Urine Total 950 ml 120 ml 825 ml 1100 ml 200 ml Bladder Scan Volume Amount 140 ml # Bowel Movements 0 2 Laboratory Tests Test 09/25/17 05:20 09/25/17 18:55 09/26/17 04:15 White Blood Count 10.0 TH/MM3 Red Blood Count 3.79 MIL/MM3 Hemoglobin 13.1 GM/DL Hematocrit 38.7 % Mean Corpuscular Volume 102.0 FL Mean Corpuscular Hemoglobin 34.5 PG Mean Corpuscular Hemoglobin Concent 33.8 % Red Cell Distribution Width 13.6 % Platelet Count 152 TH/MM3 Mean Platelet Volume 7.4 FL Blood Urea Nitrogen 10 MG/DL 14 MG/DL 10 MG/DL Creatinine 0.82 MG/DL 0.91 MG/DL 0.72 MG/DL Random Glucose 118 MG/DL 93 MG/DL 93 MG/DL Calcium Level 7.8 MG/DL 7.8 MG/DL 7.9 MG/DL Sodium Level 138 MEQ/L 132 MEQ/L 138 MEQ/L Potassium Level 3.7 MEQ/L 3.6 MEQ/L 3.6 MEQ/L Chloride Level 105 MEQ/L 99 MEQ/L 105 MEQ/L Carbon Dioxide Level 27.2 MEQ/L 26.9 MEQ/L 23.6 MEQ/L Anion Gap 6 MEQ/L 6 MEQ/L 9 MEQ/L Estimat Glomerular Filtration Rate 92 ML/MIN 82 ML/MIN 107 ML/MIN Hemoglobin A1c 5.7 % Orders Procedure Category Date Status Time Urinary Catheter RAZA 09/24/17 Complete Management 09:54 Dexmedetomidine Inj MED 09/24/17 Complete (Precedex Inj) 10:38 Acetaminophen 1000 MED 09/24/17 Complete Mg/100 Ml (Ofirmev 10 10:39 Am Admit Pre Op Care [facility] 09/24/17 Complete *Morphine Inj MED 09/24/17 Complete (*Morphine Inj 12:28 [facility] [place], [place] Nursing MED 09/24/17 Complete Information 12:11 Iohexol 300 Inj MED 09/24/17 Complete (Omnipaque 300 Inj) 13:59 Class Iv Pacu Ea 30 [facility] 09/24/17 Complete MIN General/Pacu [facility] 09/24/17 Complete Post Anesthesia Oxygen [facility] 09/24/17 Complete Influenza (Quad) MED 09/25/17 Complete Vaccine Inj (Flu 09:00 Ct Thorax/ Chest Wo RADCT 09/25/17 Resulted Iv Contras Resp Pft Bedside RSP 09/25/17 Complete Alcohol Withdrawal RAZA 09/25/17 In Process Asmt-Ciwa 17:38 Flumazenil Inj MED 09/25/17 In Process (Romazicon Inj) 17:45 Lorazepam (Ativan) MED 09/25/17 In Process 17:45 Lorazepam Inj (Ativan MED 09/25/17 In Process Inj) 17:45 Lorazepam (Ativan) MED 09/25/17 In Process 17:45 Lorazepam Inj (Ativan MED 09/25/17 In Process Inj) 17:45 Lorazepam Inj (Ativan MED 09/25/17 In Process Inj) 17:45 Lorazepam Inj (Ativan MED 09/25/17 In Process Inj) 17:45 Basic Metabolic Panel LAB 09/25/17 Complete (Bmp) 18:00 Sodium Chlor 0.9% MED 09/25/17 Complete 1000 Ml Inj (Ns 1000 M 19:30 Lactated Ringer's MED 09/25/17 Complete 1000 Ml Inj (Lr 1000 M 18:00 Basic Metabolic Panel LAB 09/26/17 Complete (Bmp) 04:00 Sodium Chlor 0.9% 250 MED 09/24/17 Complete Ml Inj (Ns 250 Ml 12:00 Sodium Chlorid 0.9% MED 09/24/17 Complete 500 Ml Inj (Ns 500 M 12:00 Normosol R Inj MED 09/24/17 Complete (Normosol R Inj) 12:00 Glycopyrrolate Inj MED 09/24/17 Complete (Robinul Inj) 12:00 Lidocaine Pf 1% Inj MED 09/24/17 Complete (Xylocaine-Mpf 1% In 12:00 Rocuronium Inj MED 09/24/17 Complete (Zemuron Inj) 12:00 Neostigmine Inj MED 09/24/17 Complete (Prostigmin Inj) 12:00 Phenyleph/Ns 1000 MED 09/24/17 Complete Mcg/10ml Syr (Neosynep 12:00 Ephedrine/Ns 25 Mg/5 MED 09/24/17 Complete Ml Syr (Ephedrine/N 12:00 Hydralazine Inj MED 09/24/17 Complete (Apresoline Inj) 12:00 Dexamethasone Inj MED 09/24/17 Complete (Decadron Inj) 12:00 Ondansetron Inj MED 09/24/17 Complete (Zofran Inj) 12:00 Fentanyl Inj MED 09/24/17 Complete (Fentanyl Inj) 12:00 Morphine Inj MED 09/24/17 Complete (Morphine Inj) 12:00 Propofol 200 Mg/20 Ml MED 09/24/17 Complete Inj (Diprivan 200 12:00 Resp Incentive RSP 09/26/17 Complete Spirometry Enoxaparin Inj MED 09/27/17 In Process (Lovenox Inj) 09:00 Attending Discharge DISCHARGE 09/27/17 Transmitted Order Vital Signs Date Time Temp Pulse Resp B/P (MAP) Pulse Ox O2 Delivery O2 Flow Rate FiO2 09/27/17 08:00 77 09/27/17 07:53 99.8 76 18 119/61 (80) 95 09/27/17 07:00 67 09/27/17 06:00 85 09/27/17 05:00 80 09/27/17 04:00 66 09/27/17 03:00 72 09/27/17 03:00 99.8 76 18 130/60 (83) 95 09/27/17 02:00 72 09/27/17 01:00 80 09/27/17 00:00 78 09/26/17 23:00 100.5 83 18 124/60 (81) 96 09/26/17 23:00 91 09/26/17 22:00 88 09/26/17 21:00 88 09/26/17 20:00 84 09/26/17 20:00 98.0 86 18 124/58 (80) 95 09/26/17 19:00 91 09/26/17 18:00 84 09/26/17 17:00 85 09/26/17 16:39 18 09/26/17 16:00 84 09/26/17 15:55 99.9 100 18 150/65 (93) 97 09/26/17 15:00 90 09/26/17 14:00 84 09/26/17 13:00 85 09/26/17 12:00 98 09/26/17 11:16 99.0 100 18 134/62 (86) 93 09/26/17 11:00 103 09/26/17 10:00 84 09/26/17 09:00 88 09/26/17 08:00 100.1 88 18 162/72 (102) 93 09/26/17 08:00 86 09/26/17 07:00 81 09/26/17 06:00 80 09/26/17 05:00 84 09/26/17 04:00 88 09/26/17 03:00 91 09/26/17 03:00 99.0 93 16 159/67 (97) 93 09/26/17 02:00 90 09/26/17 01:00 84 09/26/17 00:00 100 09/25/17 23:00 99.1 93 16 161/71 (101) 95 09/25/17 23:00 91 09/25/17 22:00 90 09/25/17 21:00 88 09/25/17 20:00 92 09/25/17 19:15 99.0 95 20 158/72 (100) 94 09/25/17 19:00 90 09/25/17 18:00 104 09/25/17 17:00 104 09/25/17 16:00 112 09/25/17 15:00 99 09/25/17 15:00 98.3 106 20 124/59 (80) 97 09/25/17 14:00 80 09/25/17 13:00 72 09/25/17 12:00 92 09/25/17 11:30 84 16 107/58 (74) 95 09/25/17 11:30 16 09/25/17 11:00 80 09/25/17 10:00 88 09/25/17 09:00 92 09/25/17 08:00 72 09/25/17 07:30 98.3 78 18 117/56 (76) 95 09/25/17 07:00 70 09/25/17 06:10 80 09/25/17 05:14 88 09/25/17 03:10 73 09/25/17 03:06 98.2 76 17 107/56 (73) 76 09/25/17 02:02 62 09/25/17 01:11 75 09/24/17 23:00 66 09/24/17 22:55 98.3 85 16 118/58 (78) 94 09/24/17 22:54 17 09/24/17 21:00 76 09/24/17 19:00 98.1 77 17 111/61 (78) 94 09/24/17 19:00 70 09/24/17 18:00 80 09/24/17 17:00 80 09/24/17 16:00 84 09/24/17 15:00 86 09/24/17 14:00 98.4 84 16 130/60 (83) 97 09/24/17 13:30 97.6 78 12 121/60 (80) 96 Nasal Cannula 3 09/24/17 13:15 81 15 118/60 (79) 96 Nasal Cannula 3 09/24/17 13:00 83 15 103/55 (71) 93 Nasal Cannula 3 09/24/17 12:45 84 15 99/55 (70) 93 Nasal Cannula 3 09/24/17 12:30 85 17 118/58 (78) 93 Nasal Cannula 3 09/24/17 12:15 84 24 128/55 (79) 95 Nasal Cannula 3 09/24/17 12:12 98.2 84 15 131/62 (85) 94 Nasal Cannula 3 Discharge Condition: Good Discharge Disposition: Discharge Home Discharge Instructions: Follow up in 3W with an ANA Leave groin incision open to air Activity as tolerated Walk daily with walker May SHOWER NO TUB BATHS or swimming until incision is fully healed Call the office to report any new onset R groin swelling/ drainage/ increased redness Any questions or concerns: Call [facility] at [facility] [phone] Courtney Donald Sep 27, 2017 09:53
--- NOTE | 2017-09-30 09:38 | RSPPFT ---
DATE OF PROCEDURE: 09/26/17 COMMENTS: Spirometry with FVC of 1.9, FEV1 of 1.0, FEV1/FVC ratio at 55%. Post-bronchodilator study was not performed. IMPRESSION: 1. Moderately severe, closer to severe, airways obstruction. 2. Post-bronchodilator study was not performed.
== END 2017-09-27 12:46 | disposition home or self-care (01) | DRG 272 ==
LOC: HSDI 05:50 → EDUNIT# 08:00 → HCPC 13:34
PROVIDERS: ADMIT Surgery; ATTEND Surgery
PROC: 04CK0ZZ Extirpation of Matter from Right Femoral Artery, Open Approach (ICD-10-PCS; 2017-09-24)
PROC: 04UK0JZ Supplement Right Femoral Artery with Synthetic Substitute, Open Approach (ICD-10-PCS; 2017-09-24)
PROC: 041K0JH Bypass Right Femoral Artery to Right Femoral Artery with Synthetic Substitute, Open Approach (ICD-10-PCS; 2017-09-24)
PROC: 047H3DZ Dilation of Right External Iliac Artery with Intraluminal Device, Percutaneous Approach (ICD-10-PCS; 2017-09-24)
PROC: B4101ZZ Fluoroscopy of Abdominal Aorta using Low Osmolar Contrast (ICD-10-PCS; 2017-09-24)
PROC: 041H0JH Bypass Right External Iliac Artery to Right Femoral Artery with Synthetic Substitute, Open Approach (ICD-10-PCS; principal; 2017-09-24 08:43)
DX: E11.51 Type 2 diabetes mellitus with diabetic peripheral angiopathy without gangrene (principal); J44.9 Chronic obstructive pulmonary disease, unspecified; I10 Essential (primary) hypertension; I25.10 Atherosclerotic heart disease of native coronary artery without angina pectoris; R91.1 Solitary pulmonary nodule; H54.62 Unqualified visual loss, left eye, normal vision right eye; F17.210 Nicotine dependence, cigarettes, uncomplicated; Z79.82 Long term (current) use of aspirin; Z23 Encounter for immunization
CPT/HCPCS: 71250; 80048; 82948; 83036; 85027; 86850; 86900; 86901; 90686; 94010; 94150; 94664; C1725; C1768; C1876; J0131; J0360; J1100; J1644; J1650; J1815; J2250; J2270; J2370; J2405; J2710; J2720; J3010; J3370; J3480; J7030; J7040; J7050; J7120; Q2038